=== PATIENT | female | born 1980 | race Caucasian/White ===

== ENCOUNTER 2017-04-09 16:01 | Emergency (ER) | payer OTHER ==
[~2017-04-09] VITALS: Ht 167.6 cm; Wt 82.0 kg
[2017-04-09 16:05] VITALS: Ht 167.6 cm; Wt 82.0 kg
[2017-04-09] MEDS ORDERED: D-ME473S18 PO (16:38)
[2017-04-09] MEDS ORDERED: AZIT250T94 PO (16:38)
[2017-04-09] MEDS ORDERED: IBUP-1542 PO (16:38)
--- NOTE | 2017-04-09 16:40 | ERD ---
ER Documentation Chief Complaint Date/Time DATE: 04/09/17 TIME: 16:39 Chief Complaint COUGH CONGESTION FOR PAST FEW DAYS HPI This 37-year-old fell presents to cough congestion last 3 days. She is a child here with cough as well for last 2 weeks. She has productive mucus which may last tactile fevers but no measured temperature. She has no chest pain, vomiting , abdominal pain, diarrhea. ROS All systems reviewed and are negative except as per history of present illness. Medications Home Meds Active Scripts Ibuprofen* (Motrin*) 600 Mg Tab, 600 MG PO Q6, #15 TAB Prov:HADLEY KIM MD 04/09/17 Dextromethorphan Hb-Promethazine Hcl (Promethazine DM Syrup) 473 Ml Syrup, 5 ML PO Q6 Y for COUGH for 5 Days, ML Prov:HADLEY KIM MD 04/09/17 Azithromycin* (Zithromax*) 250 Mg Tablet, 250 MG PO .ZPACK DIRECTED, #6 TAB TAKE 500 MG (2 TABS) THE FIRST DAY THEN 250 MG (1 TAB) DAYS 2-5 Prov:HADLEY KIM MD 04/09/17 Allergies Allergies: Coded Allergies: No Known Allergy (Unverified , 04/09/17) PMhx/Soc Medical and Surgical Hx: pt denies Medical Hx Hx Alcohol Use: No Hx Substance Use: No Hx Tobacco Use: No Physical Exam Vitals Vital Signs Date Time Temp Pulse Resp B/P Pulse Ox O2 Delivery O2 Flow Rate FiO2 04/09/17 16:05 98.7 107 18 123/73 98 Physical Exam Const: [] Alert, not ill-appearing. Head: Atraumatic Eyes: Normal Conjunctiva ENT: Normal External Ears, Nose and Mouth. TMs are Smith normal Neck: Full range of motion..~ No meningismus. Resp: Clear to auscultation bilaterally. Deep wet cough without Rales, retractions or wheezing appreciated. Cardio: Regular rate and rhythm, no murmurs Abd: Soft, non tender, non distended. Normal bowel sounds Skin: No petechiae or rashes Back: No midline or flank tenderness Ext: No cyanosis, or edema Neur: Awake and alert Psych: Normal Mood and Affect Results 24 hrs Current Medications Medications (Trade) Dose Ordered Sig/Raudel Route PRN Reason Start Time Stop Time Status Last Admin Dose Admin Ibuprofen (Motrin) 600 mg ONCE ONCE PO 04/09/17 17:00 04/09/17 17:01 Dexamethasone (Decadron) 10 mg ONCE ONCE PO 04/09/17 17:00 04/09/17 17:01 Procedures/MDM Patient presents with URI symptoms over the last 3 days. Given the productive cough duration she'll be treated with Zithromax, promethazine and ibuprofen. There is no evidence of hypoxemia, respiratory distress The child was stable with no new complaints during the ER course. Clinically there is currently no evidence to suggest meningitis, sepsis, acute abdomen or appendicitis, pneumonia , or any other emergent condition that appears to require further evaluation or hospitalization. The child will be sent home with the parents with instructions to return for any new or worsening symptoms per the aftercare instructions. They should otherwise follow up with her primary care doctor this week. Departure Diagnosis: Primary Impression: Bronchitis Patient Instructions: Acute Bronchitis Additional Instructions: Recheck for new or worsening symptoms or primary care doctor. HADLEY KIM MD April 09, 2017 16:40
[2017-04-09] MEDS ORDERED: DEXAMETHASONE 10 MG/ML 1 ML INJ PO ONE (17:00)
[2017-04-09] MEDS ORDERED: IBUPROFEN 600 MG TAB PO ONE (17:00)
== END 2017-04-09 17:50 | disposition home or self-care (01) ==
LOC: FTE 16:01
DX: J20.9 Acute bronchitis, unspecified (principal)
CPT/HCPCS: J1100; Z7502; Z7610; 99284